=== PATIENT | female | born 1990 | race Two or more races ===

== ENCOUNTER 2016-12-12 09:19 | Emergency (ER) | payer SELFPAY ==
[~2016-12-12] VITALS: Ht 157.5 cm; Wt 104.3 kg
[2016-12-12] VITALS (11 sets, daily range): BP systolic 86–108; BP diastolic 50–74
[~2016-12-12 09:19] MED LIST: DiphenhydrAMINE 50mg/ml Inj IM ONE; Haloperidol 5mg/ml Inj IM ONE; LORazepam Inj 2mg/ml 1ml IM ONE
[2016-12-12 10:57] LABS: BASOPHILS % (AUTO) 0.5 % (0.0-2.0); EOSINOPHILS % (AUTO) 1.5 % (0.0-3.0); MEAN CORPUSCULAR HEMOGLOBIN 28.5 PG (27.0-31.0); MEAN CORPUSCULAR HGB CONC 32.4 G/DL (32.0-36.0); MEAN CORPUSCULAR VOLUME 88 FL (80-99); MEAN PLATELET VOLUME 7.4 FL (6.5-10.1); MONOCYTES % (AUTO) 5.8 % (1.0-10.0); NEUTROPHILS % (AUTO) 60.2 % (45.0-75.0); PLATELET COUNT 406 K/UL (150-450); RED BLOOD COUNT 4.17 M/UL (4.20-5.40); RED CELL DISTRIBUTION WIDTH 12.5 % (11.6-14.8); WHITE BLOOD COUNT 9.4 K/UL (4.8-10.8)
[2016-12-12 11:01] LABS: APPEARANCE,URINE CLEAR; KETONES,URINE 3+ (NEGATIVE); LEUKOCYTE ESTERASE ,URINE NEGATIVE (NEGATIVE); NITRITE,URINE NEGATIVE (NEGATIVE); PH,URINE 7 (4.5-8.0); PROTEIN,URINE NEGATIVE (NEGATIVE); UROBILINOGEN,URINE 4 MG/DL (0.0-1.0)
[2016-12-12 11:13] LABS: AMORPHOUS SEDIMENT,UR FEW /LPF; BACTERIA,URINE OCCASIONAL /HPF; SQUAMOUS EPITHELIAL CELL,UR FEW /LPF (NONE/OCC); WBC,URINE 0-2 /HPF (0 - 2)
[2016-12-12 11:17] LABS: ACETAMINOPHEN < 10 ug/mL (10-30); ALANINE AMINOTRANSFERASE 19 U/L (3-33); ALBUMIN/GLOBULIN RATIO 1.4 (1.0-2.7); ALCOHOL < 10 mg/dL; ANION GAP 13 (5-15); ASPARTATE AMINO TRANSFERASE 18 U/L (5-40); CALCIUM 9.3 mg/dL (8.6-10.2); CARBON DIOXIDE 27 mEQ/L (20-30); CHLORIDE 103 mEQ/L (98-107); CREATININE 0.5 mg/dL (0.5-0.9); GLOMERULAR FILTRATION RATE > 60 mL/min (>60); HEMOLYSIS 1; POTASSIUM 3.5 mEQ/L (3.4-4.9); SODIUM 143 mEQ/L (135-145); TOTAL PROTEIN 7.2 g/dL (6.6-8.7)
--- NOTE | 2016-12-12 12:47 | Diagnostic Imaging Report ---
Indication: Chest Pain Comparison: None A single view chest radiograph was obtained. Findings: Lung volumes are low. There is no infiltrate or edema. Heart size is within normal limits. Bones are unremarkable. Impression: No acute disease
--- NOTE | 2016-12-12 14:29 | Emergency Room Report ---
History of Present Illness General Chief Complaint: Behavioral Complaint Source: EMS (Clayton Hernandez M.D.) Present Illness HPI Patient was found in bushes close to ED. Acting bizarrely. [employer] involved. Not under arrest. Was apparently seen yesterday and left without evaluation. Apparently was acting bizarrely yesterday and never gave name. Today, again acting bizarrely. Not answer questions. Accucheck in field normal. No other history available. Some consideration for possible drug ingestion. (Clayton Hernandez M.D.) Allergies: Coded Allergies: UNABLE TO ASSESS (Unverified , 12/12/16) Patient History Limited by: medical condition Past Medical History: see triage record Social History: Reports: drug use Social History Narrative on streets Reviewed Nursing Documentation: PMH: Agreed, PSxH: Agreed (Clayton Hernandez M.D.) Nursing Documentation-PMH Past Medical History Deferred: Pt Cognitively Impaired Past Medical History: No Stated History (Clayton Hernandez M.D.) Review of Systems All Other Systems: limited (Clayton Hernandez M.D.) Physical Exam Vital Signs Date Time Temp Pulse Resp B/P Pulse Ox O2 Delivery O2 Flow Rate FiO2 12/12/16 08:59 97.9 62 20 100/64 99 Room Air Sp02 EP Interpretation: reviewed, normal General Appearance: no apparent distress, alert, non-toxic, other - dishevelled Head: normocephalic, atraumatic Eyes: bilateral eye PERRL, bilateral eye Scleral Injection ENT: moist mucus membranes Neck: supple Respiratory: lungs clear, normal breath sounds Cardiovascular #1: regular rate, rhythm Cardiovascular #2: 2+ radial (R) Gastrointestinal: normal inspection, normal bowel sounds, non tender, no mass, non-distended Musculoskeletal: back normal, gait/station normal, normal range of motion Neurologic: alert, motor strength/tone normal, DTRs symmetric, oriented - will look at you when you speak to her but not answer Psychiatric: other - babbling and reacting to internal stinmuli Reflexes: 2+ knee (R), 2+ knee (L) Skin: normal inspection, warm/dry (Clayton Hernandez M.D.) Medical Decision Making Diagnostic Impression: Primary Impression: Altered level of consciousness Additional Impression: Substance abuse ER Course The patient returned to the emergency department. She's gravely disabled at this time and needs emergent evaluation with labs, EKG chest x-ray and CT of the head. She is striking out at staff. Restraints and sedation. DDx: drug ingestion, electrolyte abnormality, , occult infection, rhabdomyolysis , underlying psychopathy amongst others. Sedated and restraints removed. Labs with + amphetamines THC. Patient not answering questions. (Apparently CT nor performed) Continue observation. Signed out to Dr. Bird. Laboratory Tests Test 12/12/16 10:00 White Blood Count 9.4 K/UL (4.8-10.8) Red Blood Count 4.17 M/UL (4.20-5.40) L Hemoglobin 11.9 G/DL (12.0-16.0) L Hematocrit 36.7 % (37.0-47.0) L Mean Corpuscular Volume 88 FL (80-99) Mean Corpuscular Hemoglobin 28.5 PG (27.0-31.0) Mean Corpuscular Hemoglobin Concent 32.4 G/DL (32.0-36.0) Red Cell Distribution Width 12.5 % (11.6-14.8) Platelet Count 406 K/UL (150-450) Mean Platelet Volume 7.4 FL (6.5-10.1) Neutrophils (%) (Auto) 60.2 % (45.0-75.0) Lymphocytes (%) (Auto) 32.0 % (20.0-45.0) Monocytes (%) (Auto) 5.8 % (1.0-10.0) Eosinophils (%) (Auto) 1.5 % (0.0-3.0) Basophils (%) (Auto) 0.5 % (0.0-2.0) Urine Color Yellow Urine Appearance Clear Urine pH 7 (4.5-8.0) Urine Specific [place] 1.020 (1.005-1.035) Urine Protein Negative (NEGATIVE) Urine Glucose (UA) Negative (NEGATIVE) Urine Ketones 3+ (NEGATIVE) H Urine Occult Blood 2+ (NEGATIVE) H Urine Nitrite Negative (NEGATIVE) Urine Bilirubin Negative (NEGATIVE) Urine Urobilinogen 4 MG/DL (0.0-1.0) H Urine Leukocyte Esterase Negative (NEGATIVE) Urine RBC 2-4 /HPF (0 - 2) H Urine WBC 0-2 /HPF (0 - 2) Urine Squamous Epithelial Cells Few /LPF (NONE/OCC) Urine Amorphous Sediment Few /LPF (NONE) H Urine Bacteria Occasional /HPF (NONE) Urine HCG, Qualitative Negative Sodium Level 143 mEQ/L (135-145) Potassium Level 3.5 mEQ/L (3.4-4.9) Chloride Level 103 mEQ/L (98-107) Carbon Dioxide Level 27 mEQ/L (20-30) Anion Gap 13 (5-15) Blood Urea Nitrogen 10 mg/dL (7-23) Creatinine 0.5 mg/dL (0.5-0.9) Estimate Glomerular Filtration Rate > 60 mL/min (>60) Glucose Level 84 mg/dL (74-106) Calcium Level 9.3 mg/dL (8.6-10.2) Total Bilirubin 0.3 mg/dL (0.0-1.2) Aspartate Amino Transferase (AST) 18 U/L (5-40) Alanine Aminotransferase (ALT) 19 U/L (3-33) Alkaline Phosphatase 64 U/L (35-104) Total Protein 7.2 g/dL (6.6-8.7) Albumin 4.2 g/dL (3.5-5.2) Globulin 3.0 g/dL Albumin/Globulin Ratio 1.4 (1.0-2.7) Salicylates Level < 1 mg/dL (10-30) L Urine Opiates Screen Negative (NEGATIVE) Acetaminophen Level < 10 ug/mL (10-30) L Urine Barbiturates Screen Negative (NEGATIVE) Phencyclidine (PCP) Screen Negative (NEGATIVE) Urine Amphetamines Screen Positive (NEGATIVE) H Urine Benzodiazepines Screen Negative (NEGATIVE) Urine Cocaine Screen Negative (NEGATIVE) Urine Marijuana (THC) Screen Positive (NEGATIVE) H Serum Alcohol < 10 mg/dL (Clayton Hernandez M.D.) ER Course Patient signed out to me. She came in with acute psychosis secondary to drug abuse. She was sedated. Labs unremarkable. Drugs screen positive. She slept in the night and is now awake. We'll discharge home. No longer criteria for 5150 This patient is a chronic risk of self injury due to poor impulse control, limited coping skills, and judgment intermittently impaired by intoxication. I believe that the available clinical evidence to suggest that these characteristics derived primarily from personality disorder and are likely very stable over time. Hospitalization would likely attenuate risk of self-harm only during senior care period, without lasting risk reduction. Serious self-harm , while possible, would likely be inadvertent, and because of impulsivity, and foreseeable. For these reasons, I do not believe hospitalization would provide meaningful reduction in risk of self-harm. (SHAUNA XIAO M.D.) EKG Diagnostic Results Rate: normal Rhythm: NSR ST Segments: no acute changes (Clayton Hernandez M.D.) Rhythm Strip Diag. Results EP Interpretation: yes Rhythm: NSR, no PVC's, no ectopy (Clayton Hernandez M.D.) Chest X-Ray Diagnostic Results EP Interpretation: Yes Findings: no consolidation, no effusion, no pneumothorax, no acute cardiopulmonary disease Number of Views: 1 (Clayton Hernandez M.D.) Last Vital Signs Date Time Temp Pulse Resp B/P Pulse Ox O2 Delivery O2 Flow Rate FiO2 12/12/16 18:35 98.7 85 16 102/58 100 Room Air Status: improved (Clayton Hernandez M.D.) Status: improved (SHAUNA XIAO M.D.) Disposition: HOME, SELF-CARE Condition: Stable Referrals: NOT CHOSEN IPA/,REFERRING (PCP) Patient Instructions: Self-Destructive Behavior Additional Instructions: Abstain from drugs and alcohol. Followup with your Dr. in 7 days. Return if worse. Clayton Hernandez M.D. December 12, 2016 14:29 SHAUNA XIAO M.D. December 13, 2016 01:49
[2016-12-13 01:00] VITALS: BP 96/56
[2016-12-13 03:02] VITALS: BP 96/56
--- NOTE | 2016-12-13 16:33 | Cardiology Report ---
APPROVED REPORT EKG Measurement Heart [id number] Suspect arm lead reversal, interpretation assumes no reversal Atrial rhythm Left posterior fascicular block Nonspecific ST and T wave abnormality Abnormal ECG
== END 2016-12-13 03:02 | disposition home or self-care (01) ==
LOC: EDBD 09:19 → EMR 10:30 → EDBD 10:30 → EMR 12-13 03:02
DX: R41.82 Altered mental status, unspecified (principal); F15.10 Other stimulant abuse, uncomplicated; F12.10 Cannabis abuse, uncomplicated
CPT/HCPCS: 36415; 70450; 71010; 80053; 80300; 81003; 81025; 82962; 85025; 93005; 96372; 96374; 96375; 99284; G0480; J1200; J1630; 80329